=== PATIENT | male | born 1985 | race Two or more races ===

== ENCOUNTER 2020-08-19 10:15 | Day surgery (SDC) | payer OTHER | END 2020-08-19 15:00 | disposition home or self-care (01) | LOC: AMB-ENDOS 10:15 | PROVIDERS: ATTEND Surgery | DX: K62.89 Other specified diseases of anus and rectum (principal); Z93.3 Colostomy status; Z20.822 Contact with and (suspected) exposure to COVID-19 ==

== ENCOUNTER 2020-10-11 11:00 | Inpatient (IN) | payer OTHER ==
[~2020-10-11] VITALS: Ht 188 cm; Wt 123.4 kg
[2020-10-21] MEDS ORDERED: GABAPENTIN300 MG PO (09:33)
[2020-10-21] MEDS ORDERED: OXYC1TAB9 PO (09:33)
== END 2020-10-21 10:09 | disposition home or self-care (01) | DRG 330 ==
LOC: SURH 10-18 07:00 → O/R 10-18 08:00 → SURH 10-18 11:00 → MEDI 10-19 06:15 → SURG 10-19 07:07
PROVIDERS: ADMIT Surgery; ATTEND Surgery
PROC: 0WQF4ZZ Repair Abdominal Wall, Percutaneous Endoscopic Approach (ICD-10-PCS; 2020-10-18)
PROC: 0DN84ZZ Release Small Intestine, Percutaneous Endoscopic Approach (ICD-10-PCS; 2020-10-18)
PROC: 0DJD8ZZ Inspection of Lower Intestinal Tract, Via Natural or Artificial Opening Endoscopic (ICD-10-PCS; 2020-10-18)
PROC: 0DTF4ZZ Resection of Right Large Intestine, Percutaneous Endoscopic Approach (ICD-10-PCS; principal; 2020-10-18 07:00)
DX: Z43.3 Encounter for attention to colostomy (principal); K57.32 Diverticulitis of large intestine without perforation or abscess without bleeding; K66.0 Peritoneal adhesions (postprocedural) (postinfection); Z68.35 Body mass index [BMI] 35.0-35.9, adult

== ENCOUNTER 2021-01-29 07:31 | Emergency (ER) | payer OTHER ==
[~2021-01-29] VITALS: Ht 188 cm; Wt 74.8 kg
[~2021-01-29 07:31] MED LIST: GABAPENTIN300 MG PO; OXYC1TAB9 PO
== END 2021-01-29 17:48 | disposition home or self-care (01) ==
LOC: ER 07:31
DX: R10.84 Generalized abdominal pain (principal); Z98.890 Other specified postprocedural states

== ENCOUNTER 2021-06-02 10:30 | Inpatient (IN) | payer OTHER ==
[~2021-06-02] VITALS: Ht 188 cm; Wt 115.7 kg
[2021-06-16] MEDS ORDERED: ULTRAM50 MG PO (07:55)
== END 2021-06-16 15:09 | disposition home or self-care (01) | DRG 337 ==
LOC: SURH 06-06 09:00 → O/R 06-15 08:50 → SURG 06-15 17:27
PROVIDERS: ADMIT Surgery; ATTEND Surgery
PROC: 0WUF4JZ Supplement Abdominal Wall with Synthetic Substitute, Percutaneous Endoscopic Approach (ICD-10-PCS; 2021-06-15)
PROC: 0DNW4ZZ Release Peritoneum, Percutaneous Endoscopic Approach (ICD-10-PCS; principal; 2021-06-15 19:15)
DX: K42.0 Umbilical hernia with obstruction, without gangrene (principal); Z20.822 Contact with and (suspected) exposure to COVID-19; K66.0 Peritoneal adhesions (postprocedural) (postinfection)